=== PATIENT | female | born 1990 | race Caucasian/White ===

== ENCOUNTER 2022-02-21 00:05 | Emergency (ER) | payer SELFPAY ==
[2022-02-21] MEDS ORDERED: Albuterol/Ipratropium 3.0-0.5 MG/3 ML Neb Soln NEB ONE (01:26)
[2022-02-21 02:28] LABS: CORONAVIRUS COVID-19 NAA NEGATIVE (NEGATIVE); INFLUENZA A NAA NEGATIVE (NEGATIVE); INFLUENZA B NAA NEGATIVE (NEGATIVE); RESPIRATORY SYNCYTIAL VIR NAA NEGATIVE (NEGATIVE)
[2022-02-21] MEDS ORDERED: Albuterol 8 GM Inhaler INH ONE (02:28)
[2022-02-21] MEDS ORDERED: predniSONE 20 MG Tab PO ONE (03:03)
== END 2022-02-21 03:19 | disposition home or self-care (01) ==
LOC: MW.ED 00:05
DX: J45.901 Unspecified asthma with (acute) exacerbation (principal); Z20.822 Contact with and (suspected) exposure to COVID-19
CPT/HCPCS: 0241U; 71045; 99285; A9270; 99284; J7620-GY

== ENCOUNTER 2022-02-22 02:04 | Emergency (ER) | payer SELFPAY ==
[2022-02-22] MEDS ORDERED: Morphine 4 MG/ML VIAL IVPUSH ONE (02:33)
[2022-02-22 02:57] LABS: CARBON DIOXIDE,CO2 31.1 mmol/L (21.0-32.0); POTASSIUM,K 3.7 mmol/L (3.5-5.1)
[2022-02-22] MEDS ORDERED: Iopamidol 755 MG/ML 500 ML Multipack Bottle IVPUSH STA (04:02)
== END 2022-02-22 05:35 | disposition home or self-care (01) ==
LOC: MW.ED 02:04
DX: R16.0 Hepatomegaly, not elsewhere classified (principal); J45.909 Unspecified asthma, uncomplicated; Z79.899 Other long term (current) drug therapy
CPT/HCPCS: 36415; 74177; 80053; 81001; 81025; 83690; 85025; 96374; 99284; J2270; Q9967